=== PATIENT | male | born 1945 | race Caucasian/White ===

== ENCOUNTER 2016-07-25 06:46 | Day surgery (SDC) | payer MEDICARE ==
--- NOTE | ~2016-07-25 | EGD ---
EGD REPORT [facility] [address] [place] [id number] NAME: KELBY WITT : [birth year] STATUS : REG [facility]#: [id number] AGE: 70 ADM/REG DATE : 07/25/16 MR#: [id number] REPORT SERV DATE: 07/25/16 DICTATED BY: DATE: REPORT STATUS : Draft TRANSCRIBED BY: [employer] DATE: 07/25/16 [facility] Patient Name: Kelby Witt Date of : 1945 Attending MD: MOIZ COSBY MD Procedure Date No Time: 07/25/2016 Procedure: Colonoscopy Indications: High risk colon cancer surveillance: Personal history of colonic polyps; heme positive; last exam 7 years ago done elsewhere. Patient Profile: Informed consent was obtained from the patient by me prior to the procedure. Risks, benefits, and alternatives were discussed including the risk of bleeding, perforation, infection, reaction to medicine, missed lesion, and cardiopulmonary complications. Medicines: Monitored Anesthesia Care Complications: No immediate complications. Procedure: Pre-Anesthesia Assessment: - ASA Grade Assessment: III - A patient with severe systemic disease. After I obtained informed consent, the scope was passed under direct vision. Throughout the procedure, the patient's blood pressure, pulse, and oxygen saturations were monitored continuously. The adult colonoscope was introduced through the anus and advanced to the cecum, identified by appendiceal orifice and ileocecal valve. The colonoscope was slowly withdrawn with careful examination all mucosal surfaces including specific attention around flexures and tip deflection behind folds; retroflexion performed in rectum. The colonoscopy was performed without difficulty. The patient tolerated the procedure well. The quality of the bowel preparation was adequate. The ileocecal valve, appendiceal orifice and rectum were photographed. Findings: A sessile polyp was found in the transverse colon. The polyp was 5 mm in size. The polyp was removed with a cold biopsy forceps. Resection and retrieval were complete. A pedunculated polyp was found in the transverse colon. The polyp was 8 mm in size. The polyp was removed with a cold snare. Resection and retrieval were complete. A pedunculated polyp was found in the descending colon at 50 cm proximal to the anus. The polyp was 10 mm in size. The polyp was removed with a hot snare. Resection and retrieval were complete. One hemostatic clip EGD REPORT [id number] [place]. [address] NAME: KELBY WITT : [birth year] STATUS : REG [facility]#: [id number] AGE: 70 ADM/REG DATE : 07/25/16 MR#: [id number] REPORT SERV DATE: 07/25/16 DICTATED BY: DATE: REPORT STATUS : Draft TRANSCRIBED BY: [email or web address] DATE: 07/25/16 was successfully placed to close defect. This was done to prevent bleeding. Multiple medium-mouthed diverticula were found in the sigmoid colon, in the descending colon, in the transverse colon and in the ascending colon. Internal hemorrhoids were found. Impression: - One 5 mm polyp in the transverse colon. Resected and retrieved. - One 8 mm polyp in the transverse colon. Resected and retrieved. - One 10 mm polyp in the descending colon at 50 cm proximal to the anus. Resected and retrieved. Clip was placed. - Diverticulosis in the sigmoid colon, in the descending colon, in the transverse colon and in the ascending colon. - Internal hemorrhoids. Recommendation: - Patient has a contact number available for emergencies. The signs and symptoms of potential delayed complications were discussed with the patient. Return to normal activities tomorrow. Written discharge instructions were provided to the patient. - Regular diet. - Continue present medications. - Await pathology results. - Repeat colonoscopy for surveillance based on pathology results. - Restart Eliquis (Afib) today; continue Plavix (stents). Procedure Code(s): --- Professional --- 50418, Colonoscopy, flexible, proximal to splenic flexure; with removal of tumor(s), polyp(s), or other lesion(s) by snare technique 88320, 59, Colonoscopy, flexible, proximal to splenic flexure; with biopsy, single or multiple Diagnosis Code(s): --- Professional --- D12.4, Benign neoplasm of descending colon D12.6, Benign neoplasm of colon, unspecified D12.3, Benign neoplasm of transverse colon K64.8, Other hemorrhoids K57.30, Diverticulosis of large intestine without perforation or abscess without bleeding Z86.010, Personal history of colonic polyps EGD REPORT [place] [address] [place]. [id number] NAME: KELBY WITT : [birth year] STATUS : REG [facility] [place] PAT#: [id number] AGE: 70 ADM/REG DATE : 07/25/16 MR#: [id number] REPORT SERV DATE: 07/25/16 DICTATED BY: DATE: REPORT STATUS : Draft TRANSCRIBED BY: [email or web address] DATE: 07/25/16 CPT copyright 2013 [employer]. All rights reserved. The codes documented in this report are preliminary and upon executive receptionist review may be revised to meet current compliance requirements. MOIZ COSBY MD 07/25/2016 8:41 AM This report has been signed electronically. Number of Addenda: 0 Note Initiated On: 07/25/2016 7:23 AM Scope Withdrawal Time 0 hours 19 minutes 42 seconds [facility] [place] [id number]
[~2016-07-25 06:46] MED LIST: ALTACE10 MG PO; AMB5 PO; COREG3 PO; ELIQUIS 5 MG TAB5 MG PO; GLUCOPHAGE1000 MG PO; HYGROTON 25 MG25 MG PO; INSULIN ISOPHANE SC; JANUVIA100 MG PO; LIPITOR80 MG PO; LOFIBRA134 MG PO; MULTIPLE VIT PO; PLAVIX PO; PROTONIX PO; TRESIBA FL200 UNIT/1 SC; [UNRECOGNIZED DRUG - OTHER] SC
== END 2016-07-25 23:59 | disposition home or self-care (01) ==
LOC: DMU 06:46
PROVIDERS: Internal Medicine Gastroenterology
PROC: 0DBL8ZZ Excision of Transverse Colon, Via Natural or Artificial Opening Endoscopic (ICD-10-PCS; principal; 2016-07-25 08:30)
PROC: 0DBM8ZZ Excision of Descending Colon, Via Natural or Artificial Opening Endoscopic (ICD-10-PCS; 2016-07-25 08:30)
DX: D12.3 Benign neoplasm of transverse colon (principal); D12.4 Benign neoplasm of descending colon; K57.30 Diverticulosis of large intestine without perforation or abscess without bleeding; K64.8 Other hemorrhoids; I10 Essential (primary) hypertension; E11.9 Type 2 diabetes mellitus without complications; G47.30 Sleep apnea, unspecified; Z88.0 Allergy status to penicillin; Z86.010 Personal history of colon polyps; Z95.2 Presence of prosthetic heart valve; Z95.5 Presence of coronary angioplasty implant and graft; Z79.01 Long term (current) use of anticoagulants; Z79.02 Long term (current) use of antithrombotics/antiplatelets; Z79.4 Long term (current) use of insulin; Z79.84 Long term (current) use of oral hypoglycemic drugs; Z79.899 Other long term (current) drug therapy
CPT/HCPCS: 82962; 88305